=== PATIENT | male | born 1955 | race Caucasian/White ===

== ENCOUNTER 2016-06-23 07:51 | Inpatient (IN) | payer BC ==
--- NOTE | 2016-06-17 14:12 | HP ---
HISTORY AND PHYSICAL: DATE OF OFFICE VISIT: 06/17/16 DATE OF SURGERY: 06/23/16 SURGEON: Kimberly Ferris MD PROCEDURE: Right total hip arthroplasty. HISTORY OF PRESENT ILLNESS: Mr. Watson is a 61-year-old gentleman with complaints of right hip bianca n. He has failed conservative management and has elected to proceed with the right total hip arthro plasty, which is scheduled for 06/23/16. PAST MEDICAL HISTORY: Diabetes. PAST SURGICAL HISTORY: 1. [place] teeth extraction. 2. Vasectomy. CURRENT MEDICATIONS: 1. Metformin. 2. Calcium. 3. Daily multivitamin. 4. Vitamin D. 5. Tramadol. ALLERGIES: No known drug allergies. FAMILY HISTORY: Diabetes, heart disease, and skin cancer. SOCIAL HISTORY: He is a 61-year-old gentleman. He lives with his spouse who is a [employer] employee. Milad paz does not smoke. He uses drugs. He uses alcohol occasionally. REVIEW OF SYSTEMS: A complete 14-point review of systems was reviewed with the patient. Positive f or type 1 diabetes. He denies any bleeding disorder, history of DVT, PE, or anesthesia problems. PHYSICAL EXAMINATION GENERAL: He is well-developed, well-nourished, in no acute distress. VITAL SIGNS: He stands 5 feet 9 inches tall and he weighs 169 pounds. His blood pressure is 136/81 and his heart rate is 58. HEENT: Normocephalic, atraumatic. NECK: Supple. No palpable lymph nodes. Trachea is midline. PULMONARY: Lungs are clear to auscultation bilaterally. No wheezes, rhonchi, or rales. CARDIO: Regular rate and rhythm. Strong S1 and S2. No murmurs, gallops, or rubs. No peripheral ed gabriela. ABDOMEN: Soft, nontender, and nondistended. MUSCULOSKELETAL: The right lower extremity, the skin is intact. He walks with a slightly antalgic type gait favoring his right leg. He has limited range of motion with internal and external rotatio n of his right hip. He has 2+ dorsalis pedis pulses. Intact sensation and his lower extremity musc le group strengths are intact at 5/5. NEUROLOGICAL: He is alert and oriented x3. Cranial nerves II through XII are intact. ASSESSMENT AND PLAN: Mr. Watson is a 61-year-old gentleman with complaints of right hip pain. He has failed conservative management and has elected to proceed with the right total hip arthroplasty , which is scheduled for 06/23/[address] Ferris discussed the risks and benefits of the surgery at today's visit and all of his questions were answered. Percocet, Coumadin, and Colace we re sent to his pharmacy today for postoperative DVT prophylaxis and pain control. He will see Dr. Casandra banerjee in 10 to 14 days after the surgery. NAVI SELLERS [id number]/[facility] #: [id number]
[~2016-06-23 07:51] MED LIST: Buffered Lidocaine 1% SYR 3ML* 3 ML/SYR SYRINGE INTRADERM ONE; Famotidine IV* 10 MG/ML 2 ML (20 mg) IV ONE; Morphine INJ* 2 MG/ML 1 ML CARPUJECT IV PRN; PROCHLORPERAZINE INJ 5 MG/ML 2 ML VIAL IV PRN; fentaNYL* 50 MCG/ML 2 ML VIAL (100 MCG VIAL) IV PRN; oxyCODONE/Acetamin 5/325 MG* TAB PO PRN
[2016-06-23] MEDS ORDERED: Famotidine IV* 10 MG/ML 2 ML (20 mg) ONE (08:07)
[2016-06-23] MEDS ORDERED: ceFAZolin 2 GM PREMIX (*) 2 GM/50 ML BAG IVPB ONE (08:07)
[2016-06-23] MEDS ORDERED: Morphine PF AMP (0.5MG/ML)* 5 MG/10 ML AMP ONE (08:16)
[2016-06-23] MEDS ORDERED: KETAMINE HCL* 50 MG/ML 10 ML VIAL ONE (08:16)
[2016-06-23] MEDS ORDERED: Midazolam* 1 MG/ML 5 ML VIAL (5 MG) ONE (08:16)
[2016-06-23] MEDS ORDERED: fentaNYL* 50 MCG/ML 2 ML VIAL (100 MCG VIAL) ONE (08:16)
[2016-06-23] MEDS ORDERED: Bupivacaine 0.5% W/EPI SDV* 30 ML VIAL ONE (09:13)
[2016-06-23] MEDS ORDERED: Bupivacaine 0.5% SDV PF* 30 ML VIAL ONE ×2 (09:13→12:58)
[2016-06-23] MEDS ORDERED: Midazolam* 1 MG/ML 2 ML VIAL (2 MG) ONE (11:06)
[2016-06-23] MEDS ORDERED: Naloxone* 0.4 MG/ML 1 ML VIAL IV PRN (11:31)
[2016-06-23] MEDS ORDERED: Ondansetron INJ* 2 MG/ML VIAL IV PRN (11:31)
[2016-06-23] MEDS ORDERED: PROCHLORPERAZINE INJ 5 MG/ML 2 ML VIAL IV PRN (11:31)
[2016-06-23] MEDS ORDERED: Ibuprofen TAB* 400 MG PO PRN (11:32)
[2016-06-23] MEDS ORDERED: Morphine INJ* 4 MG/ML 1 ML CARPUJECT IV PRN (11:47)
[2016-06-23] MEDS ORDERED: diPHENhydraMINE IV* 50 MG/ML 1 ml VIAL (BENADRYL) IV PRN (11:47)
[2016-06-23] MEDS ORDERED: Bisacodyl SUPP* 10 MG SUPP PR PRN (11:47)
[2016-06-23] MEDS ORDERED: Polyethylene Glycol 3350* 17 GM PACKET PO PRN (11:47)
[2016-06-23] MEDS ORDERED: Acetaminophen TAB* 325 MG PO PRN (11:47)
[2016-06-23] MEDS ORDERED: Scopolamine PATCH Remove* 1 NOTE MISC PATCH OFF SCH (12:00)
[2016-06-23] MEDS ORDERED: Lidocaine 2% PF * 5 ML VIAL ONE (12:58)
[2016-06-23] MEDS ORDERED: Dexamethasone IV* 4 MG/ML 1 ML (4 MG) ONE (12:58)
[2016-06-23] MEDS ORDERED: Ondansetron INJ* 2 MG/ML VIAL ONE (12:58)
[2016-06-23] MEDS ORDERED: Scopolamine 1.5 mg* PATCH ONE (12:58)
[2016-06-23] MEDS ORDERED: Phenylephrine INJ* 10 MG/ML 1 ML VIAL (10 MG) ONE (12:58)
[2016-06-23] MEDS ORDERED: Propofol* 500 MG/50 ML BTL ONE (12:58)
--- NOTE | 2016-06-23 14:14 | RAD ---
HISTORY: Right hip replacement COMPARISONS: March 14, 2016 VIEWS: 1, single frontal intraoperative view of the pelvis performed during right hip arthroplasty FINDINGS: BONE DENSITY: Normal. BONES: The patient is status post right hip arthroplasty. Temporary femoral sizing component is noted. JOINTS: The patient is status post right hip arthroplasty ALIGNMENT: There is no dislocation. SOFT TISSUES: Unremarkable. OTHER FINDINGS: None. IMPRESSION: LIMITED PORTABLE INTRAOPERATIVE VIEW OF THE PELVIS DURING RIGHT HIP ARTHROPLASTY
--- NOTE | 2016-06-23 15:08 | CONS ---
CONSULTATION: DATE OF CONSULT: 06/23/16 PRIMARY CARE PROVIDER: CALEB De La Garza PROVIDER REQUESTING CONSULTATION: Kimberly Ferris MD REASON FOR CONSULTATION: Co-management and assistance for diabetes management. SOURCE OF INFORMATION: History obtained from the patient, review of medical records, and review of med records from primary care provider. HISTORY OF PRESENT ILLNESS: This is a 61-year-old man, [place] [facility] with planned elective right total hip replacement. 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 His medical history is notable for diabetes. His last hemoglobin A1c was 6.6 in March, on single- agent medical therapy, metformin once daily. He acknowledges some dietary indiscretion. The patient was seen status post procedure in the PACU. When interviewed by this author, he currently has no complaints, is in no distress, has no pain. PAST MEDICAL HISTORY: Includes type 2 diabetes. Outpatient records indicate hypertension and hyperlipidemia, although the patient refutes these 2 findings. PAST SURGICAL HISTORY: Includes vasectomy in 1982 and right total hip replacement today. OUTPATIENT MEDICATIONS: Include: 1. Tramadol 50 mg every 6 hours as needed. 2. Metformin 1000 mg in the evening. 3. Calcium plus vitamin D once daily. 4. Multivitamin 1 tablet daily. ALLERGIES: No known drug allergies. FAMILY HISTORY: Includes diabetes. SOCIAL HISTORY: No history of smoking. Occasional consumption of alcohol. No illicit drugs. REVIEW OF SYSTEMS: Negative for all systems reviewed. PHYSICAL EXAM: Vital signs: When seen by this author, blood pressure 105/61, heart rate 61, respiratory rate 14, and O2 sat 100% on room air. General: Lying flat in bed, interactive, pleasant, in no apparent distress. HEENT: His oropharynx is clear. He has moist mucous membranes. Sclerae anicteric. Neck: He has nonelevated JVD. He has no cervical or supraclavicular lymphadenopathy. Lungs: Clear to auscultation. Heart: Regular rate and rhythm. No murmurs, rubs, or gallops. Abdomen: Soft, nontender, and nondistended with positive bowel sounds. Extremities: Warm and well perfused without clubbing, cyanosis, or edema. Currently, his lower extremities are neurovascularly intact , status post procedure. Neurologic: He is alert and oriented x3. His cranial nerves II through XII are intact. Gait not assessed. No apparent anxiety, agitation, or depression. DIAGNOSTIC STUDIES/LAB DATA: No labs to review. No radiology report to review. ASSESSMENT AND PLAN: This is a well-appearing 61-year-old man, in good health. Major comorbidity includes type 2 diabetes, on single-agent monotherapy. 1. Diabetes type 2: Continue metformin 1000 mg daily. This author has ordered this medication to continue, starting this evening. Do not recommend trending fingersticks with meals. Ideally, oral medications will be titrated as an outpatient to suit his needs based on hemoglobin A1c. I do not recommend sliding scale insulin for this patient at this time. 2. Hypertension: Per chart review, although the patient denies currently on no therapy as an outpatient. When seen by this author, blood pressure 105/61. Continue to monitor. No need for initiation of medication. 3. Hyperlipidemia: Again, refuted by this patient. Not on current medications as an outpatient, not recommended starting at this time. 4. Status post right total hip replacement: Cared per primary team. Pain management per primary team. 5. DVT prophylaxis: Per primary team, currently ordered for Coumadin 8 mg, start this evening. Follow INRs. Thank you for allowing us to participate in the care of this patient. We will sign off for now. Please do not hesitate to call with further questions, page [phone]. CC: CALEB De La Garza* [id number]/[facility] #: [id number] SAMMI
--- NOTE | 2016-06-23 15:31 | RAD ---
INDICATION: Right hip arthroplasty COMPARISON: March 14, 2016 TECHNIQUE: An AP view of the pelvis and AP views of the hip in neutral and abducted position were obtained FINDINGS: Bones: Interval right hip arthroplasty. The prosthesis appears well seated. Joint spaces: Minor narrowing about the left hip joint space. SI joints/symphysis: The SI joints and symphysis are intact. Other: None IMPRESSION: RIGHT HIP ARTHROPLASTY. THE PROSTHESIS APPEARS NORMALLY SEATED
[2016-06-23] MEDS ORDERED: Warfarin TAB(*) 4 MG PO ONE (17:00)
[2016-06-23] MEDS: ceFAZolin 1 GM in Dextrose (*) 1 GM/50 ML BAG IVPB SCH (17:23)
[2016-06-23] MEDS: metFORMIN* 1,000 MG TAB PO SCH (21:51)
[2016-06-23] MEDS: Magnesium Hydroxide LIQ* 30 ML UDC PO SCH (21:51)
[2016-06-23] MEDS: Docusate CAP* 100 MG PO SCH (21:51)
[2016-06-24] MEDS: ceFAZolin 1 GM in Dextrose (*) 1 GM/50 ML BAG IVPB SCH ×2 (01:02→08:57)
--- NOTE | 2016-06-24 01:46 | OP ---
DATE OF OPERATION: 06/23/16 - ROOM #333 DATE OF : 59 SURGEON: Kimberly Ferris MD LINK KNITTING MACHINE OPERATOR: NAVI Tran ANESTHESIOLOGIST: Dr. Loredo. ANESTHESIA: Spinal. PRE-OP DIAGNOSIS: Severe end-stage degenerative osteoarthritis of the right hip joint. POST-OP DIAGNOSIS: Severe end-stage degenerative osteoarthritis of the right hip joint. OPERATIVE PROCEDURE: Right total hip arthroplasty. COMPLICATIONS: None. ESTIMATED BLOOD LOSS: 300 cc. SPECIMENS: Femoral head and acetabular reaming sent to pathology. HARDWARE USED: Uncemented Andrew total hip hardware. For the acetabular cup, a size 54 cluster hole shell with a 125 mm screw. For the insert, a Trident X3 0- degree 36E, for the stem an Accolade TMZF size 2.5 with a 127-degree neck, for the head a Biolox delta ceramic V40 36+0 femoral head. BRIEF HISTORY/INDICATIONS: Mr. Watson is a 61-year-old gentleman with years of increasingly severe right hip pain. He failed conservative treatment with antiinflammatories, pain medications, and physical therapy. Radiographs confirmed vyld-vo-rhbl arthritis and he elected to undergo right total hip arthroplasty due to continued pain and decreased quality of life. Informed consent was obtained from the patient. He understood the risks of surgery included but were not limited to bleeding, infection, damage to nearby structures, continued pain, need for further surgery, intraoperative fracture, nerve palsy, dislocation, leg length discrepancy, hardware failure or loosening , stroke, heart attack, blood clot, and . He wished to proceed. INTRAOPERATIVE FINDINGS: Intraoperatively, the patient was noted to have end- stage arthritis with full thickness loss of cartilage along the femoral head and the acetabulum. DESCRIPTION OF PROCEDURE: Mr. Watson was identified in the preanesthesia unit. His right lower extremity was marked as the correct operative site. Informed consent was signed and placed in the chart. The patient was taken to the operating room and placed under spinal anesthesia. A Thomas catheter was placed. The patient was placed in the left lateral decubitus position on the peg board. All bony prominences were well padded. Right lower extremity was prepped and draped in the usual sterile fashion. Preop time-out was made to correctly identify the patient, side, and site. Appropriate perioperative antibiotics were given within 1 hour of incision. A 12-cm posterior hip incision was made with a #10 blade and carried down to the fascia layer. A new #10 blade was used to make an incision in the line with the skin incision. Charnley retractor was placed and the posterior aspect of the hip joint was visualized. The piriformis and conjoint tendons were identified and elevated off the posterolateral femur using electrocautery. These were tagged with two #5 Ethibond. Next, the electrocautery was used to make a standard posterolateral capsular flap and this was also tagged with two # 5 Ethibond. The hip was carefully dislocated. Lesser trochanter to center of the femoral head was measured 53 mm. Oscillating saw was used to make the appropriate femoral neck cut. Femoral head was carefully removed and sent to pathology. The femur was carefully retracted anteriorly. After appropriate placement of retractor, the acetabulum was visualized. Labrum was sharply removed from the edge of the acetabulum using a long handled knife. Electrocautery was used to remove any soft tissue from the cotyloid notch. The acetabulum was sequentially reamed up to a size 53. Good bleeding bone bed was obtained and all osteophyte was removed. The 53 trial had excellent fit as well as appropriate anteversion and abduction angle. A 54 Tritanium cup was chosen and impacted into the acetabulum. The cup was quite stable with appropriate anteversion and abduction angle. A 125-mm screw was used in the superior posterior quadrant for extra stability. A Trident X3 0- degree liner 36E was chosen. This was impacted into the acetabular cup without difficulty. Stability of the liner was checked and rechecked and noted to be stable. Next, attention was turned to preparation of the proximal femur. Box cut osteotome and canal finder were used to enter the proximal femur. Femoral canal was sequentially broached up to a size 2.5. Size 2.5 stem had good stability and appropriate anteversion. A trial 127 degree neck and trial 36 +0 head was chosen. Lesser troch to the center of the femoral head measured 52 mm. The hip was taken through range of motion and noted to be quite stable in all positions. There was appropriate soft tissue tension and leg length. All trials were carefully removed. Final implant chosen for the femur was an Accolade TMZF size 2.5 with a 127-degree neck. This was impacted into the femoral canal without difficulty. There was excellent stability of the stem. A 36+0 Biolox delta ceramic femoral head was chosen. This was impacted onto the femoral neck without difficulty. The hip was reduced and taken through range of motion. The hip was stable in all positions. The hip was copiously irrigated with sterile saline. The previously tagged capsule and tendons were reapproximated to the posterior lateral femur through 2 trochanteric drill holes. The lateral fascia layer was closed using interrupted #1 Vicryl. The rest of the incision was closed in a layered fashion using 0 and 2-0 Vicryl. Skin was closed using running 3-0 Monocryl and Dermabond. Sterile Adaptic,4x4's and paper tape were used to cover the incision. The patient's anesthesia was reversed without difficulty. He was taken to the PACU in stable condition. Intended weight-bearing will be weightbearing as tolerated with posterior hip precautions. Intended DVT prophylaxis will be Coumadin with a Lovenox bridge. [id number]/[facility] #: [id number] [facility]
[2016-06-24] MEDS ORDERED: Ondansetron INJ* 2 MG/ML VIAL IV PRN (03:00)
[2016-06-24] MEDS ORDERED: Ondansetron TAB* 4 MG PO PRN (03:00)
[2016-06-24] MEDS ORDERED: oxyCODONE/Acetamin 5/325 MG* TAB PO PRN (03:00)
[2016-06-24] MEDS: oxyCODONE/Acetamin 5/325 MG* TAB PO PRN ×4 (03:49→20:59)
[2016-06-24 06:55] LABS: Hematocrit 34 % (42-52); Hemoglobin 11.6 g/dl (14.0-18.0)
[2016-06-24 08:08] LABS: BUN/Creatinine Ratio 18.6 (8-20); Calcium 8.5 mg/dL (8.6-10.3); EGFR African American 148.4 (>60); EGFR Non-African American 115.4 (>60); Potassium 4.3 mmol/L (3.5-5.0)
[2016-06-24] MEDS: Vitamin THERAPEUTIC TAB PO SCH (08:57)
[2016-06-24] MEDS: Magnesium Hydroxide LIQ* 30 ML UDC PO SCH ×2 (08:57→20:59)
[2016-06-24] MEDS: Docusate CAP* 100 MG PO SCH ×2 (08:57→20:59)
--- NOTE | 2016-06-24 09:04 | PN ---
Progress Note - Progress Note SOAP: Subjective: Pt. is alert, reports pain is controlled. Objective: RLE - thigh soft, dressing c/d/i. distally +df/pf, full sens lt, 2+ dp pulse. Vital Signs: Temp Pulse Resp BP Pulse Ox 98.8 F 56 18 102/52 95 06/24/16 07:19 06/24/16 07:19 06/24/16 08:00 06/24/16 07:19 06/24/16 07:19 Laboratory Results - last 24 hr 06/23/16 06/23/16 06/24/16 17:21 21:56 06:23 Hgb 11.6 L Hct 34 L INR (Anticoag Therapy) Sodium Potassium Chloride Carbon Dioxide Anion Gap BUN Creatinine Est GFR ( Amer) Est GFR (Non-Af Amer) BUN/Creatinine Ratio Glucose POC Glucose (mg/dL) 186 H 249 H Calcium 06/24/16 06/24/16 06/24/16 06:23 06:23 07:45 Hgb Hct INR (Anticoag Therapy) 0.93 Sodium 135 Potassium 4.3 Chloride 103 Carbon Dioxide 29 Anion Gap 3 BUN 13 Creatinine 0.70 Est GFR ( Amer) 148.4 Est GFR (Non-Af Amer) 115.4 BUN/Creatinine Ratio 18.6 Glucose 178 H POC Glucose (mg/dL) 174 H Calcium 8.5 L Assessment: 61 yo M pod 1 s/p RTHA Plan: wbat rle with post hip precautions pt/ot 8 mg coumadin tonight with lovenox bridge xrays satisfactory d/c to home am 06/25
--- NOTE | 2016-06-24 09:37 | PN ---
Progress Note - Progress Note Note: Anesthesia duramorph followup. Pain well controlled, -N/V, -YU, neuro ok, VSS, s /p THR, continue oral meds.
[2016-06-24] MEDS: Enoxaparin(*) 40 MG/0.4 ML SYR SUBCUT SCH (12:40)
[2016-06-24] MEDS ORDERED: Warfarin TAB(*) 6 MG PO SCH ×2 (17:00)
[2016-06-24] MEDS: Warfarin TAB(*) 4 MG PO SCH ×2 (17:04→17:09)
[2016-06-24] MEDS: metFORMIN* 1,000 MG TAB PO SCH (20:59)
[2016-06-25 07:01] LABS: Hematocrit 34 % (42-52); Hemoglobin 11.6 g/dl (14.0-18.0)
[2016-06-25] MEDS: oxyCODONE/Acetamin 5/325 MG* TAB PO PRN (07:51)
--- NOTE | 2016-06-25 09:02 | PN ---
Progress Note - Progress Note SOAP: Subjective: POD #2 Right MARIA LUZ. Doing very well. States pain is well controlled. Would like to go home today. Denies CP/SOB or calf pain Objective: Vitals: Temp Pulse Resp BP Pulse Ox 100.3 F 66 16 140/60 98 06/25/16 07:39 / 07:39 06/25/16 07:51 06/25/16 07:39 06/25/16 07:39 Gen: A&Ox3, NAD at rest laying in bed L Hip: Incision C/D/I. Mild edema and ecchymosis. No erythema. Thigh soft/NT. +f /e at knee, ankle and MTPs. N/V intact Labs: Laboratory Results - last 24 hr 06/24/06/24/16 06/24/16 12:36 17:05 21:04 Hgb Hct INR (Anticoag Therapy) POC Glucose (mg/dL) 149 H 183 H 188 H 06/25/06/25/16 06/25/16 06:23 06:23 07:51 Hgb 11.6 L Hct 34 L INR (Anticoag Therapy) 0.98 POC Glucose (mg/dL) 157 H Assessment: POD #2 Right MARIA LUZ Plan: Dry dressing applied Pt to be d/c'd home today VNS to see Monday Cont 8mg Coumadin through weekend
[2016-06-25] MEDS: Vitamin THERAPEUTIC TAB PO SCH (09:21)
[2016-06-25] MEDS: Docusate CAP* 100 MG PO SCH (09:22)
[2016-06-25] MEDS: Magnesium Hydroxide LIQ* 30 ML UDC PO SCH (09:22)
[2016-06-25 11:50] VITALS: BP 115/66
[2016-06-25] MEDS: Enoxaparin(*) 40 MG/0.4 ML SYR SUBCUT SCH (12:42)
--- NOTE | 2016-06-25 15:59 | DS ---
DISCHARGE SUMMARY: DATE OF ADMISSION: 06/23/16 DATE OF DISCHARGE: 06/25/16 PROVIDER: Kimberly Ferris MD ADMITTING DIAGNOSIS: Severed end-stage osteoarthritis of the right hip. DISCHARGE DIAGNOSES: Severed end-stage osteoarthritis of the right hip, status post right total hip arthroplasty. SECONDARY DIAGNOSIS: Type 2 diabetes. HISTORY OF PRESENT ILLNESS: Mr. Watson is a 61-year-old gentleman who had ongoing complaints of right hip pain. He had failed conservative management such as pain medication, activity modification, physical therapy, and elected to proceed with a right total hip arthroplasty. HOSPITAL COURSE: On 06/23/16, the patient was admitted to [facility] and underwent a successful right total hip arthroplasty. He recovered briefly in the postanesthesia care unit and was transferred to the short stay surgical unit in stable condition. On postop day 1, the patient was able to ambulate with a use of rolling walker and participate in physical therapy. His pain was well controlled with oral pain medication only. His laboratory results on postop day 1, H and H was 11.6 and 34. INR was 0.93 with 8 mg of Coumadin the previous night. On postop day 2, the patient's pain continued to be well controlled. He was able to ambulate with minimal assistance with the use of a rolling walker and participate in physical therapy. His pain was well controlled with oral pain medication. H and H was 11.6 and 34. Again, INR was 0.98 with 8 mg of Coumadin previously. The patient was found stable for discharge home on 06/25/16. Throughout the hospital course, the patient remained afebrile and normotensive. DISCHARGE MEDICATIONS: The patient will take: 1. Percocet 5/325 mg one to two tabs p.o. q.4 to 6 hours p.r.n. pain. 2. Colace 100 mg p.o. b.i.d. p.r.n. constipation. 3. Coumadin 8 mg on 06/25/16 and 06/26/16. He will have a redraw of his INR on 06/27/16 by visiting nurse. He will resume his home medications of: 1. Metformin 1000 mg p.o. daily. 2. Calcium 500 mg p.o. daily. 3. Multivitamin one tab p.o. daily. DISCHARGE INSTRUCTIONS: The patient is to keep his incision clean and dry until postop day 4. At that point, he may shower normally and apply a dry dressing as needed. He is understanding not to submerge the wound in a bath tub , hot tub, or swimming pool. He will have home visiting nurse for INR draws and wound care. He will have home physical therapy as well. He will follow up in the office with Dr. Ferris 10 to 14 days postoperatively. He is understanding to call the office with any questions or concerns. He is understanding to go directly to the emergency room with any chest pain, shortness of breath, fever greater than 101.5, calf pain or swelling. NAVI SIGALA [id number]/[facility] #: [id number] MTDChika
[2016-06-27] MEDS ORDERED: oxyCODONE/Acetamin 5/325 MG* TAB PO PRN (11:31)
== END 2016-06-25 14:00 | disposition home or self-care (01) | DRG 301 ==
LOC: AA 07:51 → SSU 15:12
PROVIDERS: ADMIT Orthopaedic Surgery Adult Reconstructive Orthopaedic Surgery; ATTEND Orthopaedic Surgery Adult Reconstructive Orthopaedic Surgery
PROC: 0SR904A Replacement of Right Hip Joint with Ceramic on Polyethylene Synthetic Substitute, Uncemented, Open Approach (ICD-10-PCS; principal; 2016-06-23 11:00)
DX: M16.11 Unilateral primary osteoarthritis, right hip (principal); I10 Essential (primary) hypertension; E11.9 Type 2 diabetes mellitus without complications; M25.751 Osteophyte, right hip; E78.5 Hyperlipidemia, unspecified; Z98.52 Vasectomy status; Z83.3 Family history of diabetes mellitus; Z82.49 Family history of ischemic heart disease and other diseases of the circulatory system; Z80.8 Family history of malignant neoplasm of other organs or systems; Z79.84 Long term (current) use of oral hypoglycemic drugs
CPT/HCPCS: 36415; 72170; 80048; 85014; 85018; 85610; 88304; 88311; 94760; A9270-GY; C1713; C1776; J0690; J1100; J1650; J2250; J2405; J2704; J3010

== ENCOUNTER 2017-04-09 09:09 | Emergency (ER) | payer BC, OTHER ==
[2017-04-09 09:24] VITALS: BP 120/65
--- NOTE | 2017-04-09 10:48 | RAD ---
Indication: RIGHT hip pain. Post hip replacement in June 2016. Comparison: September 19, 2016 Technique: AP pelvis and AP and frog-leg lateral views RIGHT hip. Report: Normally located RIGHT prosthetic hip. No periprosthetic fracture or stigmata of loosening. Mild osteophytosis and moderate superior joint space narrowing at the LEFT hip without change. Unremarkable sacroiliac joints and pubic symphysis. Unremarkable soft tissue contours. IMPRESSION: No radiographic abnormality of the prosthetic RIGHT hip.
--- NOTE | 2017-04-14 07:21 | UC ---
Wing Dowell Angela, [facility] for [facility] on 04/09/17 at 1001 . Back Pain HPI - HPI Summary HPI Summary: In Room Note: This pt is a 61 y/o male presenting to [facility] c/o low back pain x3 days. His pain is on the bilateral lower back with radiation to his right hip. 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 3 days ago he was loading packages in the truck and after he finished he suddenly had back pain, across the lower back. Pt notes he went home and took a hot bath with some relief. The next morning (2 days ago) pt woke up with back pain but took another hot bath with some relief. He went to work that day as he felt better. Pt has taken 2 days off from work (yesterday and today) due to pain. His pain is aggravated by laughing. Pt denies numbness, weakness or tingling in LE, urinary or bowel incontinence. He denies any other complaints, nausea, vomiting, diarrhea. PMHx includes diabetes, for which he is taking metformin. Pt had a right hip replacement. Note: Lower back pain radiating to right hip. Pt is s/p hip replacement (2016 ). Vital signs are stable. Afebrile. Pulse ox is 100. 8/10 pain. Visit history: type 2 diabetes. 09/19/16: unremarkable XR of prosthetic right hip. Nurses Note: lift boxes on experiencesd sharp pain in lowerr back that is radiating down hip which he had replaced in June - History of Current Complaint Chief Complaint: UCBackPain Stated Complaint: HIP/BACK PAIN Time Seen by Provider: 04/09/17 09:55 Hx Obtained From: Patient Onset/Duration: Lasting Days, Still Present Timing: Lasting Days Back Pain: Is Discrete @ - lower back, Radiates To - right hip Aggravating Factor(s): Other - laughing Associated Signs And Symptoms: Negative: Weakness, Numbness, Tingling, Bladder Incontinence, Bowel Incontinence Related History: Occupational Injury - Allergies/Home Medications Allergies/Adverse Reactions: Allergies Allergy/AdvReac Type Severity Reaction Status Date / Time No Known Allergies Allergy Verified 04/09/17 09:20 PMH/Surg Hx/FS Hx/Imm Hx Endocrine History: Diabetes Other Cardiovascular History: DENIES: HTN - Surgical History Surgical History: Yes Surgery Procedure, Year, and Place: 2002 WISDOM TEETH EXTRACTION, right hip replacement - Family History Known Family History: Positive: Cardiac Disease, Hypertension, Diabetes - Social History Alcohol Use: Occasionally Substance Use Type: None Smoking Status (MU): Never Smoked Tobacco - Immunization History Most Recent Influenza Vaccination: NONE Most Recent Tetanus Shot: UNKNOWN Most Recent Pneumonia Vaccination: NONE Review of Systems Constitutional: Negative Skin: Negative Eyes: Negative ENT: Negative Respiratory: Negative Cardiovascular: Negative Gastrointestinal: Negative Genitourinary: Negative Motor: Negative Neurovascular: Negative Musculoskeletal: Other: - low back pain radiating to right hip Neurological: Negative Psychological: Negative Is Patient Immunocompromised?: No All Other Systems Reviewed And Are Negative: Yes Physical Exam Triage Information Reviewed: Yes Vital Signs: Initial Vital Signs Temp 98 F 04/09/17 09:21 Pulse 61 04/09/17 09:21 Resp 16 04/09/17 09:21 BP 120/65 04/09/17 09:21 Pulse Ox 100 04/09/17 09:21 Vital Signs Reviewed: Yes - Additional Comments The patient is well-nourished in no acute distress and in no acute pain. The skin is warm and dry and skin color reflects adequate perfusion. HEENT: The head is normocephalic and atraumatic. The pupils are equal and reactive. The conjunctivae are clear and without drainage. Nares are patent and without drainage. Mouth reveals moist mucous membranes and the throat is without erythema and exudate. The external ears are intact. The ear canals are patent and without drainage. The tympanic membranes are intact. Neck is supple with full range of motion and non-tender. There are no carotid bruits. There is no neck vein distension. Respiratory: Chest is non-tender. Lungs are clear to auscultation and breath sounds are symmetrical and equal. Cardiovascular: Hear is regular rate and rhythm. There is no murmur or rub auscultated. There is no peripheral edema and pulses are symmetrical and equal. Abdomen: The abdomen is soft and non-tender. There are normal bowel sounds heard in all four quadrants and there is no organomegaly palpated. Musculoskeletal: Extremities are non-tender with full range of motion. There is good capillary refill. There is no peripheral edema or calf tenderness elicited. THERE IS A 12 CM HEALED PROCEDURE SCAR ON THE LATERAL ASPECT OF THE RIGHT HIP. THERE IS NO PAIN WITH PALPATION OF THE RIGHT HIP. Neurological: Patient is alert and oriented to person, place and time. The patient has symmetrical motor strength in all four extremities. Cranial nerves are grossly intact. Deep tendon reflexes are symmetrical and equal in all four extremities. Psychiatric: The patient has an appropriate affect and does not exhibit any anxiety or depression. Diagnostics - Radiology Right hip XR Xray Interpretation: No Acute Changes - IMPRESSION: No radiographic abnormalitiy of the prosthetic RIGHT hip. Dr. Bob has reviewed this radiology report. Radiology Interpretation Completed By: Radiologist Back Pain Course/Dx - Course Course Of Treatment: Medications have been included in the original chart and reviewed. Normal BP reading and no follow-up instructions required. Physical exam shows THERE IS A 12 CM HEALED PROCEDURE SCAR ON THE LATERAL ASPECT OF RIGHT HIP. NO PAIN WITH PALPATION OF THE RIGHT HIP. COT: The pt complains of back pain radiating to his righ thip. X-ray shows right prosthetic hip in place without abnormalities. Pt works in the post office moving boxes. I discussed with him his lumbar strain and options for treatment and work. - Differential Dx/Diagnosis Differential Diagnosis/HQI/PQRI: Cauda Equina Syndrome, Compressive Cord Syndrome, Strain Provider Diagnoses: Lumbar strain, bilateral Discharge - Discharge Plan Condition: Stable Disposition: HOME Patient Education Materials: Low Back Strain (ED) Referrals: Piotr Philip NP [Primary Care Provider] - Additional Instructions: Thank you for helping us improve patient care by filling out the My Point Survey. WE DISCUSSED: There is no abnormality seen in your hip x ray. 1. REST FROM ANY ACTIVITY THAT HURTS YOUR LOW BACK. 2. WARM MOIST HEAT IN MORNING; ICE IF PAIN AFTER WORKING. 3. RE CHECK AND CONSIDER PHYSICAL THERAPY IF CONTINUED PAIN AFTER ONE WEEK. 4. IBUPROFEN AND ACETAMINOPHEN FOR PAIN. Ibuprofen 400mg (2 pills) and acetaminophen 500 mg taken at the same time, up to four times a day would be good for both pain and calming down the inflammation. This may irritate your stomach. Take an antacid if it does. If you need to do this for more than a week because of pain, check with your doctor. PLEASE SEEK CARE AT THE EMERGENCY DEPARTMENT IF SYMPTOMS WORSEN OR IF NEW SYMPTOMS DEVELOP. FOLLOW UP WITH YOUR PRIMARY CARE PHYSICIAN. The documentation as recorded by the Wing tomlinson Angela accurately reflects the service I personally performed and the decisions made by me, Ministerio Bob MD.
== END 2017-04-09 11:00 | disposition home or self-care (01) ==
LOC: UCEAST 09:09
DX: S39.012A Strain of muscle, fascia and tendon of lower back, initial encounter (principal); X50.0XXA Overexertion from strenuous movement or load, initial encounter; Y93.89 Activity, other specified; Y92.242 Post office as the place of occurrence of the external cause; Y99.0 Civilian activity done for income or pay; E11.9 Type 2 diabetes mellitus without complications; Z96.641 Presence of right artificial hip joint
CPT/HCPCS: 99211; G0463

== ENCOUNTER 2018-09-04 07:07 | Emergency (ER) | payer BC ==
[2018-09-04 07:16] VITALS: BP 127/73
--- NOTE | 2018-09-04 07:39 | UC ---
Respiratory Complaint HPI - HPI Summary HPI Summary: 3 WEEKS AGO HAD A RESPIRATORY INFECTION. ALL SX ARE NOW RESOLVED EXCEPT FOR A PERSISTENT COUGH. DENIES SOB OR WHEEZE. - History of Current Complaint Chief Complaint: UCGeneralIllness Stated Complaint: COUGH Time Seen by Provider: 09/04/18 07:17 Hx Obtained From: Patient Onset/Duration: Gradual Onset, Lasting Weeks, Still Present Timing: Constant Severity Initially: Moderate Severity Currently: Moderate Pain Intensity: 0 Pain Scale Used: 0-10 Numeric Character: Cough: Nonproductive Aggravating Factors: Nothing Alleviating Factors: Nothing Associated Signs And Symptoms: Negative: Dyspnea, Fever, Chills, Wheezing, URI - Allergies/Home Medications Allergies/Adverse Reactions: Allergies Allergy/AdvReac Type Severity Reaction Status Date / Time No Known Allergies Allergy Verified 09/04/18 07:16 PMH/Surg Hx/FS Hx/Imm Hx Endocrine History: Diabetes - Surgical History Surgical History: Yes Surgery Procedure, Year, and Place: 2002 WISDOM TEETH EXTRACTION, right hip replacement - Family History Known Family History: Positive: Cardiac Disease, Hypertension, Diabetes - Social History Alcohol Use: Occasionally Substance Use Type: None Smoking Status (MU): Never Smoked Tobacco - Immunization History Most Recent Influenza Vaccination: NONE Most Recent Tetanus Shot: UNKNOWN Most Recent Pneumonia Vaccination: NONE Review of Systems All Other Systems Reviewed And Are Negative: Yes Constitutional: Positive: Negative Respiratory: Positive: Cough Cardiovascular: Positive: Negative Gastrointestinal: Positive: Negative Physical Exam Triage Information Reviewed: Yes Appearance: Well-Appearing, No Pain Distress, Well-Nourished Vital Signs: Initial Vital Signs Temp 97.6 F 09/04/18 07:12 Pulse 74 09/04/18 07:12 Resp 18 09/04/18 07:12 BP 127/73 09/04/18 07:12 Pulse Ox 98 09/04/18 07:12 Vital Signs Reviewed: Yes Eyes: Positive: Conjunctiva Clear ENT: Positive: Hearing grossly normal, Pharynx normal, TMs normal Neck: Positive: Supple, Nontender, No Lymphadenopathy Respiratory Exam: Normal Cardiovascular Exam: Normal Abdomen Description: Positive: Soft Musculoskeletal: Positive: No Edema Neurological: Positive: Alert Psychological: Positive: Age Appropriate Behavior Skin: Negative: Rashes Respiratory Course/Dx - Differential Dx/Diagnosis Provider Diagnosis: Post-viral cough syndrome Discharge - Sign-Out/Discharge Documenting (check all that apply): Patient Departure All imaging exams completed and their final reports reviewed: No Studies - Discharge Plan Condition: Stable Disposition: HOME Prescriptions: predniSONE TAB* [Deltasone 20 MG TAB*] 40 mg PO DAILY #10 tab Patient Education Materials: Acute Cough (ED) Referrals: Piotr Philip, TECHNICIAN ANATOMIC PATHOLOGY [Primary Care Provider] - If Needed Additional Instructions: YOU ARE LIKELY SUFFERING FROM A POST-INFECTIOUS COUGH. THIS CAN LINGER FOR WEEKS. WILL TRY A SHORT COURSE OF PREDNISONE. CONSIDER TAKING A DAILY ANTIHISTAMINE. YOU MAY CALL ME HERE ON MONDAY IF YOU HAVE ANY QUESTIONS OR CONCERNS. Coughing is the body's reaction to irritation in the bronchial tubes. Most patients with a new cough simply have a virus infection. However, a cough can be caused by allergies, inflammatory diseases, infection, or foreign matter in the lungs. For example, patients with hay fever-type allergies may have coughing as the only symptom. Patients with very mild asthma may not wheeze; they may simply cough. Some medicines make patients cough. Sometimes heart palpitation ("skip beats") can cause coughing. We try to identify and treat the underlying cause of the cough. Sometimes that's not possible at first. If the cough does not go away after a reasonable time, you will need further testing. You should avoid fumes, dust, and smoke (especially tobacco smoke). Don't exercise in very cold or in hot and dry conditions. (Warm up slowly as you begin exercising.) Bronchodilators (asthma medicine) are sometimes helpful. An expectorant medicine (for example guafenesin) might make the cough more comfortable. Antihistamines can help if the problem is allergy; if the problem is something else, they can dry the airway and make the cough worse. If the cough is new and very bothersome, cough-suppressant medicine may help. We try to avoid narcotic cough medicines with chronic coughs. Notify your doctor at once if sputum becomes thick, foul, or bloody, if you develop a fever or chest pain, or if you become short of breath. - Billing Disposition and Condition Condition: STABLE Disposition: Home
== END 2018-09-04 07:38 | disposition home or self-care (01) ==
LOC: UCEAST 07:07
DX: R05 Cough (principal); E11.9 Type 2 diabetes mellitus without complications; Z96.641 Presence of right artificial hip joint
CPT/HCPCS: 99212; G0463